=== PATIENT | female | born 1945 | race Caucasian/White ===

== ENCOUNTER 2018-01-06 02:38 | Emergency (ER) | payer MEDICARE, OTHER ==
[2018-01-06] MEDS ORDERED: diphenhydrAMINE 25 MG CAP ONE (03:06)
[2018-01-06] MEDS ORDERED: predniSONE 20 MG TAB ONE (03:07)
== END 2018-01-06 03:15 | disposition home or self-care (01) ==
LOC: NAV ERS 02:38
DX: T78.40XA Allergy, unspecified, initial encounter (principal)
CPT/HCPCS: 99283; J7506